=== PATIENT | male | born 1940 | race Caucasian/White ===

== ENCOUNTER → 2017-05-06 | Outpatient (CLI) | payer OTHER ==
[~2017-05-06] VITALS: Ht 177.8 cm; Wt 93.5 kg
[~2017-05-06] MED LIST: ASPIR 8181 MG PO; ATORVASTATIN CA40 MG PO; CELEBREX 200 M200 M1 PO; FISH OIL 1,001000 M2 PO; LOSARTAN POTAS100 MG PO; NEURONTIN 300300 M1 PO; NEXIUM40 MG PO; NORVASC5 MG PO; POTASSIUM99 MG PO; SYNTHROID75 MCG PO; TRAZODONE HCL50 MG PO; TYLENOL EXTRA500 MG PO; TYLENOL PM EX-1 EACH PO; UNICOMPLEX M TA1 TA1 PO
--- NOTE | ~2017-05-06 | HPC ---
[facility] [address] [place] [address] PAIN MANAGEMENT CONSULTATION Name: JAVIER CALLEJAS Room #: REG [facility].#: [id number] Admission: 05/06/17 Attend Phys: Jose Edward DO Discharge: Date of : 40 Report #: [id number] THIS REPORT FOR: //name// CC: Jose Lyons MD DATE OF SERVICE: 05/06/2017 REFERRING PHYSICIAN: Kimberly Lyons MD CHIEF COMPLAINT: Low back pain, bilateral lower extremity pain. HISTORY OF PRESENT ILLNESS: As you know, the patient is a 76-year-old male with longstanding history of low back pain, bilateral lower extremity pain. The patient indicates pain began several years back, no inciting injury or trauma. He has not had any formalized physical therapy nor has he undergone any type of imaging studies. He apparently had 3 prior history of low back pain, which was diagnosed as facet arthropathy and he underwent surgical X-STOP implantation times [address] Jay[address] This apparently alleviated the patient's axial back pain for a period of time. He did have prior epidural injections approximately [address] Sandro Edward at his outpatient facility. He is unable to remember if he received improvement in symptoms. The patient states pain has caused him to return to see his primary care who referred him over to our clinic for evaluation. He indicates today pain is 6/10, daily average of 6/10, worst pain has been is 10/10. The patient states that physical activity exacerbates symptoms, rest and medication tends to improve pain. He describes pain as continuous, intermittent numbness and tingling. The patient denies specific injury or trauma. He has not undergone any imaging including x-ray imaging. He has been referred to our service for evaluation. PAST MEDICAL HISTORY: 1. Hypertension. 2. Thyroid disease. 3. Osteoarthritis. 4. Degenerative joint disease. 5. Hypokalemia. 6. Gastroesophageal reflux disease. 7. Dyslipidemia. PAST SURGICAL HISTORY: 1. X-STOP implantation times 2. 2. Right total hip arthroplasty. SOCIAL HISTORY: The patient denies tobacco, IV or illicit drug use, admits to approximately 3 alcoholic beverages per day. 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 He is not receiving workmen's compensation nor is he trying to obtain disability benefits. He is unaccompanied at today's visit. REVIEW OF SYSTEMS: Positive for fatigue and weakness, wearing corrective eyewear, hearing loss with tinnitus, chronic sinus problems with rhinitis, nocturia, low back pain, thyroid disease, heat and cold intolerance, dyslipidemia, gastroesophageal reflux disease. All other review of systems negative per 12-point review of systems other than those listed in history of present illness. PAIN IMPACT SCORE: indicating [id number] interference of daily activities secondary to pain. ALLERGIES: IBUPROFEN. CURRENT MEDICATIONS: [facility]-3 fish oil 1 tab per day, multivitamin 1 tab per day, potassium 99 mg per day, Tylenol Extra Strength 500 mg 3 times a day, trazodone 50 mg p.o. at bedtime, gabapentin 300 mg b.i.d., aspirin 81 mg per day, omeprazole 40 mg per day, celecoxib 200 mg twice a day, atorvastatin 40 mg per day, losartan 100 mg per day, amlodipine 5 mg per day, levothyroxine 75 mcg per day. IMAGING: No imaging available. PQRS: The patient has known osteoarthritis. No rheumatoid arthritis. He has pain intensity 6/10. He is not a fall risk, has not had a fall in the past 3 months. He is not using any type of ambulatory device. Blood thinners, none. He is treated for hypertension. He is not on opioids. He is not at risk of opioid dependency. Functional assessment tool . PHYSICAL EXAMINATION: VITAL SIGNS: Blood pressure 165/88, pulse is 60, respiratory rate 18 and unlabored, the patient is 98% on room air, height 5 feet 10 inches tall, weight 206.2 pounds, and BMI calculated 29.6. GENERAL: Well-developed, well-nourished, well-hydrated 76-year-old male, appearing stated age, placing current pain score 6/10. HEENT: Normocephalic, atraumatic. Pupils are equal, round, and reactive to light. Sclerae nonicteric without injection. NEUROLOGIC: Speech is fluent. The patient deemed a good historian. LUNGS: Clear, no wheeze, rhonchi or rales. CARDIOVASCULAR: Regular. No appreciable gallop, no rub. ABDOMEN: Soft, nontender, nondistended, normoactive bowel sounds. EXTREMITIES: Show no clubbing, no cyanosis, and no edema. MUSCULOSKELETAL: Lower extremity strength appears equal and symmetrical 5/5. He is intact to light touch from L1 through S2 dermatomes. Seated straight leg [facility] [address] [place] [address] PAIN MANAGEMENT CONSULTATION Name: JAVIER CALLEJAS Room #: REG [facility]#: [id number] Admission: 05/06/17 Attend Phys: Jose Edward DO Discharge: Date of : 40 Report #: [id number] raising negative. Supine straight leg raising mildly positive. Lauren's test negative. Modified Gaenslen's positive for axial back pain. Ankle clonus negative. Babinski is negative. Lumbar provocation including extension, rotation, lateral flexion is met with reduction in mobility secondary to X-STOP and mild increase in pain. ASSESSMENT: 1. Chronic lumbar pain. 2. Bilateral lower extremity pain. 3. Lumbosacral spondylosis with radicular component. 4. Chronic intractable pain. PLAN: 1. The patient has been referred to our service by his primary care physician for evaluation for chronic back pain issues. The patient indicates pain has been present for years. The patient has had treatment in the lumbar region with X-STOP implantation to address axial back pain with Dr. Jay. He has also undergone epidural injections approximately 4 years ago to address axial back pain secondary to facet arthropathy. This has been worked well for the patient from chronic axial back pain standpoint, but did not improve the patient's lower extremity pain with paresthesias. He was referred to our clinic to discuss options for treatment for suspected lumbar radiculopathy. The patient and I did discuss that further imaging would be most beneficial so that we can determine the definitive course of treatment. We did discuss in generalities the treatment options for axial back pain and lower extremity pain with paresthesias. These would include physical therapy, stretching exercises, core strengthening for which the patient has not undergone formalized training and treatment. We discussed medication management with escalating doses of gabapentin and the use of a nonsteroidal anti-inflammatory on a consistent basis. We discussed lumbar epidural injections for which the patient was referred to our clinic and spinal cord stimulator therapy and surgical options. After this long discussion of treatment options, the patient was agreeable to undergo imaging study. 2. The patient will undergo MRI of lumbar spine without contrast. He will return once this has been completed. We will then review the findings and discuss more definitive treatment at our next visit. The patient will undergo this imaging study as quickly as possible, be seen back in our clinic to discuss the findings and treatment options that might be available. 3. No medication changes were made at today's visit. The patient to continue current medical therapy as previously prescribed. 4. We will see the patient back in followup visit once he has completed his MRI. We will discuss the findings and provide this information back to his PCP as well as suggestions for treatment. 5. We wish to thank Dr. Lyons for the opportunity to see this patient in consultation. We will keep you apprised of [place] [address] PAIN MANAGEMENT CONSULTATION Name: JAVIER CALLEJAS Room #: REG [facility]#: [id number] Admission: 05/06/17 Attend Phys: Jose Edward DO Discharge: Date of : 40 Report #: [id number] address his suspected lumbar radiculopathy and his axial back pain due to facet arthropathy. Again, we wish to thank you for the opportunity to see the patient in consultation. <ELECTRONICALLY SIGNED> By: Jose Edward DO 05/13/17 [id number] [id number] Jose Edward DO /nt
[2017-05-06 09:27] VITALS: BP 165/88
== END ==
LOC: RAD 06:41 → PAIN 06:41
DX: M47.897 Other spondylosis, lumbosacral region (principal); M79.661 Pain in right lower leg; I10 Essential (primary) hypertension; K21.9 Gastro-esophageal reflux disease without esophagitis; E78.5 Hyperlipidemia, unspecified

== ENCOUNTER → 2017-05-13 | Outpatient (CLI) | payer OTHER ==
[~2017-05-13] VITALS: Ht 177.8 cm; Wt 97.7 kg
--- NOTE | ~2017-05-13 | HPC ---
[facility] [place] [address] PAIN MANAGEMENT CONSULTATION Name: BRITTAJAVIER April Room #: REG [facility].#: [id number] Admission: 05/13/17 Attend Phys: Jose Edward DO Discharge: Date of : 40 Report #: [id number] THIS REPORT FOR: //name// CC: Jose Lyons MD DATE OF SERVICE: 05/13/2017 REFERRING PHYSICIAN: Kimberly Lyons M.D. CHIEF COMPLAINT: Low back pain, bilateral lower extremity pain and paresthesias. HISTORY OF PRESENT ILLNESS: As you know, the patient is a 76-year-old male with longstanding history of low back pain, bilateral lower extremity pain and paresthesias. The patient states pain began several years back. No inciting injury or trauma. He was referred to our clinic on 05/06/2017 for evaluation. At that appointment, the patient was diagnosed with chronic lumbar pain, bilateral lower extremity pain and lumbosacral spondylosis with radicular symptoms leading to chronic intractable pain involving low back and lower extremities. We sent the patient for imaging as we did wish to determine the potential source of his symptomology. He returns today. Reviewed the MRI, which does show significant multilevel extensive neural foraminal stenosis and severe central canal stenosis. He returns to discuss the findings on this MRI and discuss treatment options. ALLERGIES: IBUPROFEN. CURRENT MEDICATIONS: [place] 3 fish oil, multivitamin, potassium, acetaminophen, trazodone, gabapentin, aspirin, omeprazole, celecoxib, atorvastatin, losartan, amlodipine and levothyroxine. SOCIAL HISTORY: The patient denies tobacco, IV or illicit drug use. Admits to approximately 3 alcoholic beverages per day. 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 He is accompanied by his who is present in room today. IMAGING DATA: MRI of the lumbar spine obtained 05/06/2017 shows extensive multilevel lumbar spondylosis with interspinous process devices at L3-L4 and L4-L5, there is severe central canal stenosis at L2-L3, [id number]/severe left foraminal stenosis at L5-S1 and multilevel subarticular and neural foraminal stenosis throughout the lumbar region. PQRS: The patient has known osteoarthritis. No rheumatoid arthritis. His pain intensity today 5/10. He is not a fall risk, has not had a fall in the last [address] [address] PAIN MANAGEMENT CONSULTATION Name: BRITTAJAVIER April Room #: REG [facility]#: [id number] Admission: 05/13/17 Attend Phys: Jose Edward DO Discharge: Date of : 40 Report #: [id number] months. He is not on blood thinners. He is treated for hypertension. He is not on current opioids but does have a low opioid assessment. His functional assessment tool indicates that a pain intensity of 22/70. PHYSICAL EXAMINATION: VITAL SIGNS: Blood pressure 153/90, pulse is 65 and respiratory rate 16 and unlabored. The patient is 96% on room air. Height 5 feet 10 inches tall, weight 215 pounds and BMI calculated 30.9. GENERAL: Well-developed, well-nourished, well-hydrated 76-year-old male appearing stated age. He is placing current pain score at around 4/10. HEENT: Normocephalic and atraumatic. Pupils equal, round and reactive to light. Extraocular muscles are intact. Sclerae nonicteric without injection. NEUROLOGICAL: Cranial nerves 2 through 12 grossly intact. EXTREMITIES: Show no clubbing, no cyanosis and no edema. MUSCULOSKELETAL: Seated straight leg raising negative. Supine straight leg raising positive. Fabere's test negative. Modified Gaenslen's positive for axial low back pain. Ankle clonus negative. Babinski is negative. Gait is mildly antalgic. Stance, slightly forward flexed lumbar spine. ASSESSMENT: 1. Lumbar radiculopathy. 2. 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 3. Displacement of the lumbar intervertebral disk with radiculopathy. 4. Lumbosacral spondylosis with radiculopathy. 5. Severe neural foraminal stenosis of the lumbar spine. 6. Facet arthropathy of the lumbar spine. 7. Lumbar degeneration. 8. Chronic intractable pain. PLAN: 1. The patient has returned today in followup visit where we have discussed at length the findings on his MRI. We spent over 22 minutes of time reviewing the MRI and discussing the findings and how they correlate the patient's current symptoms. There are extensive changes throughout the lumbar region noted on the imaging study. This is likely secondary to the X-Stops placed at the levels at L3-L4 and L4-L5 causing L2-L3 severe neural foraminal stenosis due to facet changes and also L5-S1 changes that are below the X-Stop devices. We have discussed the findings with the patient and then discussed treatment options, which would include the following: We discussed physical therapy, stretching exercise, core strengthening as a way to treat the symptoms. We discussed medication management with neuropathic pain medication and low dose opioid for pain control. We discussed lumbar epidural injections under fluoroscopic guidance and spinal cord stimulator therapy along with surgical options as possible treatment. After reviewing the risks and benefits of all the proposed treatment options, the patient chose to begin with a lumbar epidural injection under fluoroscopic guidance. The patient was advised risks and benefits of a [facility] [address] [place] [address] PAIN MANAGEMENT CONSULTATION Name: JAVIER CALLEJAS Room #: REG [facility].#: [id number] Admission: 05/13/17 Attend Phys: Jose Edward DO Discharge: Date of : 40 Report #: [id number] lumbar epidural injection. These risks include but are not necessarily limited to bleeding, bruising, infection, worsening pain, no relief of pain and also risk of temporary or permanent muscle weakness, temporary or permanent nerve damage, possible paralysis and . The patient states understood and wished to proceed. 2. No medication changes were made at today's visit. The patient will continue current medical therapy as previously prescribed. 3. We will see the patient back in followup visit in approximately 30 days. At that time, review the efficacy of today's epidural injection to determine next in the series of epidural injections would be recommended. PROCEDURE NOTE DESCRIPTION OF PROCEDURE: L2-L3 lumbar epidural steroid injection under fluoroscopic guidance. This is the first procedure of the first series that the patient is undergoing. After obtaining written consent, the patient was taken back to the fluoroscopy suite, placed in a prone position with pillow under the abdomen to decrease lumbar lordosis. The skin overlying the lumbosacral area was then prepped and draped in aseptic fashion. The L2-L3 vertebral interspace was then identified by AP fluoroscopy. The skin and subcutaneous tissue overlying the target site of injection was anesthetized with 3 mL 1% lidocaine. A 20-gauge 3-1/2 inch Tuohy needle was then advanced under fluoroscopic guidance towards the epidural space using a midline approach. The epidural space was identified using loss of resistance to air technique. After negative aspiration for heme or cerebrospinal fluid, a total of 1 mL of Omnipaque was injected. A lumbar epidurogram was confirmed using both AP and lateral fluoroscopy. After negative aspiration for heme or cerebrospinal fluid, 5 mL of a solution containing 2 mL 40 mg per mL, 80 mg total triamcinolone, 3 mL lidocaine 1% was injected in increments. Contrast spread was noted posterior epidural space. The needle was then retracted approximately half way and needle tract flushed with 1 mL of 1% lidocaine. Needle was then removed. There were no apparent sensory or motor deficits in the lower extremity following the procedure. A sterile bandage was placed over the injection site. The heart rate, pulse, oximetry and blood pressure were continuously monitored after the procedure. There were no apparent complications. The patient tolerated the procedure well and was carefully escorted [place] [address] PAIN MANAGEMENT CONSULTATION Name: JAVIER CALLEJAS Room #: REG [facility]#: [id number] Admission: 05/13/17 Attend Phys: Jose Edward DO Discharge: Date of : 40 Report #: [id number] stable condition. There were no apparent complications. After meeting discharge criteria, the patient was then discharged home. <ELECTRONICALLY SIGNED> By: Jose Edward DO 05/19/17 1336 [id number] Jose Edward DO /nt
[2017-05-13 09:57] VITALS: BP 153/90
== END | disposition home or self-care (01) ==
LOC: PAIN 07:00
DX: M47.26 Other spondylosis with radiculopathy, lumbar region (principal); M47.27 Other spondylosis with radiculopathy, lumbosacral region; G89.29 Other chronic pain; M48.061 Spinal stenosis, lumbar region without neurogenic claudication; Z68.30 Body mass index [BMI] 30.0-30.9, adult; Z88.8 Allergy status to other drugs, medicaments and biological substances

== ENCOUNTER → 2018-05-12 | Outpatient (CLI) | payer OTHER ==
[~2018-05-12] VITALS: Ht 177.8 cm; Wt 91.9 kg
[2018-05-12 10:11] VITALS: BP 150/86
--- NOTE | 2018-05-12 10:23 | NUR ---
Pain Clinic Assessment: 1. History of Osteoarthritis: Left Lower Extremity Right Lower Extremity History of Rheumatoid Arthritis: Not Applicable 2. Height: 5 ft. 10 in. 177.8 cm. Weight: 202.6 lb. oz. 91.899 kg. Patient's BMI: 29.1 3. Vital Signs: BP: 150/86 Pulse: 54 Resp: 16 Temp: 02 Sat: 98 ECG Mon: 4. Pain Intensity: 5 5. Fall Risk: Dizziness: N Needs help standing or walking: N Fallen in the last 3 months: N Fall risk comments: 6. Patient on Blood Thinner: None 7. History of Hypertension: Y 8. Opioid Therapy greater than 6 weeks: N Opiate Contract Signed: 9. Risk Assessment Tool Provided: LOW 10. Functional Assessment Tool: 11. Recreational Drug Use: Never Drug Type: Tobacco Use: Never Smoker Tobacco Type: Amount or Packs/day: How Many Years: Alcohol Use: Yes Frequency: Weekly Quant: 8-10
--- NOTE | 2018-05-18 07:33 | HPC ---
[facility] [place] [address] PAIN MANAGEMENT CONSULTATION Name: JAVIER CALLEJAS [facility] [id number] Admission: 05/12/18 ������������������ Attend Phys: Jose Edward DO Discharge: ������������������ Date of : 40 Report #: [id number] THIS REPORT FOR: //name// CC: Jose Lyons DATE OF SERVICE: 05/12/2018 REFERRING PHYSICIAN: Kimberly Lyons M.D. CHIEF COMPLAINT: Low back pain and bilateral lower extremity pain with paresthesias. HISTORY OF PRESENT ILLNESS: As you know, the patient is a 77-year-old male who returns today in followup visit to review his MRI and to discuss treatment options for lumbar radicular symptoms. The patient's MRI showed extensive multilevel spondylosis with interspinous processes devices at L3-L4 and L4-L5 with severe central canal stenosis at the L2-L3 level, severe foraminal stenosis at the L5-S1 level. He returns today to review these findings and discuss options for treatment. He is placing pain score 5/10. ALLERGIES: IBUPROFEN. CURRENT MEDICATIONS: [place]-3 fish oil, multivitamin, potassium, acetaminophen, trazodone, gabapentin, aspirin, omeprazole, celecoxib, atorvastatin, losartan, amlodipine and levothyroxine. SOCIAL HISTORY: The patient denies tobacco or IV or illicit drug use. Admits to 3 alcohol beverages per day. 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 IMAGING DATA: MRI lumbar spine obtained 05/06/2017 shows extensive multilevel lumbar spondylosis with interspinous processes devices at L3-L4, L4-L5; severe central canal stenosis at L2-L3 and [id number]-ei-oqxojo left foraminal stenosis at L5-S1. There is effacement of the central canal at L2-L3, L3-L4, L4-L5 and L5-S1. PQRS: The patient has known osteoarthritis of the lumbar spine, bilateral hips, bilateral knees. There was no rheumatoid arthritis. He is placing pain intensity today 5/10. He is not a fall risk, has not had a fall in the last 3 months. He is not on blood thinners. He is treated for hypertension. He is not on chronic opioids. He has a low opioid addiction potential. He is placing pain impact score 22/70, hrgi-qj-[id number] interference of daily activities secondary to pain. PHYSICAL EXAMINATION: VITAL SIGNS: Blood pressure 150/86, pulse is 54 and respiratory rate [address] [address] PAIN MANAGEMENT CONSULTATION Name: JAVIER CALLEJAS [facility] [id number] Admission: 05/12/18 ������������������ Attend Phys: Jose Edward DO Discharge: ������������������ Date of : 40 Report #: [id number] unlabored. The patient is 98% on room air. Height 5 feet 10 inches tall, weight 202.6 pounds and BMI calculated 29.1. GENERAL: Well-developed, well-nourished and well-hydrated 77-year-old male appearing stated age, placing current pain score 5/10. HEENT: Normocephalic and atraumatic. Pupils equal, round and reactive to light. EXTREMITIES: Show no clubbing, no cyanosis and no edema. MUSCULOSKELETAL: Lower extremity strength is symmetrical 5/5. Seated straight leg raising negative. Supine straight leg raising positive. Lauren's test negative. Modified Gaenslen's positive for axial low back pain. Gait antalgic. ASSESSMENT: 1. Symptomatic lumbar radiculopathy. 2. 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 3. Severe neural foraminal stenosis of the lumbar spine. 4. Lumbosacral spondylosis with radiculopathy. 5. Displacement of lumbar intervertebral disk with radiculopathy. 6. Facet arthropathy of the lumbar spine. 7. Lumbar degeneration. 8. Chronic intractable pain. PLAN: 1. The patient returns today in followup visit where we reviewed his MRI and the findings therein. I am disappointed to advise the patient that he has severe central canal stenosis at the L2-L3 level, likely due to progressive nature of fusion devices leading to more rapid development of arthritic changes above the level of fusion. As you are aware, the patient has interspinous fusion devices at L3-L4 and L4-L5, which does put him at greater risk of problems occurring at the L2-L3 and the L5-S1 level. The patient has severe central canal stenosis at L2-L3 and will likely need to have decompression sometime in the future. He also has severe neural foraminal stenosis at the L5-S1 level on the left, which could potentially be contributing to the patient's overall pain. We discussed with the patient the MRI imaging today over a 25-minute period of time. After this conversation was completed, we discussed treatment options. Options for treatment include physical therapy, stretching exercises and core strengthening. We discussed medication management, adding neuropathic pain medication that consisted nonsteroidal anti-inflammatory. We discussed lumbar epidural injections under fluoroscopic guidance, spinal cord stimulator therapy to provide temporary improvement in symptoms and ultimately surgical decompression. After reviewing risks and benefits of all proposed treatment options, the patient chose to move forward with a lumbar epidural injection under fluoroscopic guidance. The patient was advised of risks and benefits to this procedure and these risks [address] [address] PAIN MANAGEMENT CONSULTATION Name: JAVIER CALLEJAS Room #: [facility]#: [id number] Admission: 05/12/18 ������������������ Attend Phys: Jose Edward DO Discharge: ������������������ Date of : 40 Report #: [id number] include but not necessarily limited to bleeding, bruising, infection, worsening pain, no relief of pain, also risk of temporary or permanent muscle weakness, temporary or permanent nerve damage, possible paralysis and . The patient states understood and wished to proceed. 2. No medication changes made at today's visit. The patient will continue current medical therapy as previously prescribed. 3. We will see the patient back in followup visit in 3 weeks for possible repeat epidural injection under fluoroscopic guidance. PROCEDURE NOTE DESCRIPTION OF PROCEDURE: L2-L3 interlaminar epidural steroid injection under fluoroscopic guidance. This is the first procedure of the second series that the patient is undergoing. After obtaining written consent, the patient was taken back to the fluoroscopy suite, placed in a prone position with pillow under the abdomen to decrease lumbar lordosis. The skin overlying the lumbosacral area was then prepped and draped in aseptic fashion. The L2-L3 vertebral interspace was then identified by AP fluoroscopy. The skin and subcutaneous tissue overlying the target site of injection was anesthetized with 3 mL 1% lidocaine. A 20-gauge 3-1/2 inch Tuohy needle was then advanced under fluoroscopic guidance towards the epidural space using a midline approach. The epidural space was identified using loss of resistance to air technique. After negative aspiration for heme or cerebrospinal fluid, a total of 1 mL of Omnipaque was injected. A lumbar epidurogram was confirmed using both AP and lateral fluoroscopy. After negative aspiration for heme or cerebrospinal fluid, 5 mL of a solution containing 2 mL 40 mg per mL, 80 mg total triamcinolone, 3 mL lidocaine 1% was injected in increments. Contrast spread was noted posterior epidural space. The needle was then retracted approximately half way and needle tract flushed with 1 mL of 1% lidocaine. Needle was then removed. There were no apparent sensory or motor deficits in the lower extremity following the procedure. A sterile bandage was placed over the injection site. The heart rate, pulse, oximetry and blood pressure were continuously monitored after the procedure. There were no apparent complications. The patient tolerated the procedure well and was carefully escorted to the recovery room in stable condition. There were no apparent complications. After meeting discharge criteria, the patient was then discharged home. ��������������������������������������������� <ELECTRONICALLY SIGNED> ���������������������������������������� By: Jose Edward DO ��������������������������������������������� 05/18/18 [id number] Jose Edward DO /nt
== END | disposition home or self-care (01) ==
LOC: PAIN 06:56
DX: M51.16 Intervertebral disc disorders with radiculopathy, lumbar region (principal); M48.061 Spinal stenosis, lumbar region without neurogenic claudication; M47.27 Other spondylosis with radiculopathy, lumbosacral region; M47.26 Other spondylosis with radiculopathy, lumbar region; G89.29 Other chronic pain; I10 Essential (primary) hypertension; M19.90 Unspecified osteoarthritis, unspecified site; Z88.8 Allergy status to other drugs, medicaments and biological substances; Z79.899 Other long term (current) drug therapy; Z79.82 Long term (current) use of aspirin

== ENCOUNTER → 2018-09-01 | Outpatient (CLI) | payer OTHER ==
[~2018-09-01] VITALS: Ht 177.8 cm; Wt 94.6 kg
[~2018-09-01] MED LIST changes: +FLONASE 0.05%50 MCG NASAL; +HYDROCHLOROTH12.5 M2 PO
--- NOTE | ~2018-09-01 | HPC ---
[facility] [address] [place] [address] PAIN MANAGEMENT CONSULTATION Name: RBITTAJAVIER April Room #: REG [facility].#: [id number] Admission: 09/01/18 ������������������ Attend Phys: Jose Edward DO Discharge: ������������������ Date of : 40 Report #: [id number] THIS REPORT FOR: //name// CC: Jose Lyons MD DATE OF SERVICE: 09/01/2018 REFERRING PHYSICIAN: Kimberly Lyons M.D. CHIEF COMPLAINT: Low back pain and bilateral lower extremity pain with paresthesias. HISTORY OF PRESENT ILLNESS: As you know, the patient is a very pleasant 78-year-old male who returns today in followup visit having undergone lumbar epidural injections under fluoroscopic guidance with reported 90% improvement in overall pain lasting for nearly 10 weeks. He returns today in followup visit with slow and progressive return of symptoms. He is now placing pain score 5/10. The patient denies any specific injury or trauma that may have led to symptom reoccurrence. He returns today to discuss next in a series of epidural injections and other treatment options. ALLERGIES: IBUPROFEN. CURRENT MEDICATIONS: [place]-3 fish oil, multivitamin, potassium, acetaminophen, trazodone, gabapentin, aspirin, omeprazole, celecoxib, atorvastatin, losartan, amlodipine and levothyroxine. SOCIAL HISTORY: The patient denies tobacco or IV or illicit drug use. Admits to 3 alcoholic beverages per day. 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 IMAGING DATA: No new imaging available. PQRS: The patient has no known arthritic changes of the lumbar spine, bilateral hips and bilateral knees. No rheumatoid arthritis. He is placing pain intensity today at 5/10. He is not a fall risk, has not had a fall in the 3 months. He is not on blood thinners but is treated for hypertension. He is not on opioids and has a low opioid addiction potential based on our addiction testing. He is placing pain impact score 22/70 indicating lrpe-cx-[id number] interference of daily activities secondary to pain. PHYSICAL EXAMINATION: VITAL SIGNS: Blood pressure 136/75, pulse 58 and respiratory rate 14 and unlabored. The patient is 96% on room air. Height 5 feet 10 inches tall, [address] [address] PAIN MANAGEMENT CONSULTATION Name: JAVIER CALLEJAS Room #: REG [facility].#: [id number] Admission: 09/01/18 ������������������ Attend Phys: Jose Edward DO Discharge: ������������������ Date of : 40 Report #: [id number] weight 208.6 pounds and BMI calculated 29.9. GENERAL: Well-developed, well-nourished, well-hydrated 78-year-old male appearing stated age, pain is rated 5/10. HEENT: Normocephalic and atraumatic. Pupils equal, round and reactive to light. EXTREMITIES: Show no clubbing, no cyanosis and no edema. MUSCULOSKELETAL: Lower extremity strength symmetrical 5/5. Muscle bulk and tone equal and symmetrical when comparing left lower extremity to right. Seated straight leg raising negative. Supine straight leg raising positive, mainly on the right. Lauren's test negative. Modified Gaenslen's positive for axial low back pain. Ankle clonus negative. Babinski is negative. Gait is antalgic. Well-healed surgical scars over the lumbar spine, status post 2 lumbar surgeries. ASSESSMENT: 1. Symptomatic lumbar radiculopathy. 2. 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 3. Severe neural foraminal stenosis of the lumbar spine. 4. Lumbosacral spondylosis with radiculopathy. 5. Displacement of the lumbar intervertebral disk with radiculopathy. 6. Facet arthropathy of the lumbar spine. 7. Lumbar degeneration. 8. Chronic intractable pain. PLAN: 1. The patient returns today in followup visit having noted 90% improvement in overall pain with previous lumbar epidural injection under fluoroscopic guidance. He is very pleased with response to this injection, returning today to undergo next in the series. He has been advised risks and benefits of the procedure, states understood and wished to proceed. 2. The patient and I did discuss other treatment options available for his ongoing symptoms. These would include physical therapy, stretching exercise, core strengthening as a treatment course. We discussed medication management adding neuropathic pain medications and if possible consistent nonsteroidal anti-inflammatory. We discussed continuing epidural injections as we did see 10 weeks of improvement of 90% or greater. We also discussed spinal cord stimulator therapy and surgical options, which would include revision to the X-Stops implanted and a full instrumented fusion with decompression, as you are aware, a very complicated and extensive surgery. After reviewing the risks and benefits of all proposed treatment options, the patient chose to continue with the epidural injections with hopes of gaining further improvement. The patient was advised risks and benefits of a lumbar epidural injection. These risks include but are not necessarily limited to bleeding, bruising, infection, worsening pain, no relief of pain, also risk of temporary or permanent muscle weakness, temporary or permanent nerve damage, possible [address] [address] PAIN MANAGEMENT CONSULTATION Name: JAVIER CALLEJAS [id number] Admission: 09/01/18 ������������������ Attend Phys: Jose Edward DO Discharge: ������������������ Date of : 40 Report #: [id number] paralysis and . The patient states understood and wished to proceed. 3. We will see the patient back in followup visit on an as needed basis for possible next in a series of lumbar epidural injections. We wish the patient well with the second in the series. We did describe one remaining epidural injection in the 6 months, we wish to delay on this injection until which time it is necessary. He will make an appointment back with us as needed. PROCEDURE NOTE DESCRIPTION OF PROCEDURE: L2-L3 interlaminar epidural steroid injection under fluoroscopic guidance. This is the second procedure of the first series that the patient is undergoing. After obtaining written consent, the patient was taken back to the fluoroscopy suite, placed in a prone position with pillow under the abdomen to decrease lumbar lordosis. The skin overlying the lumbosacral area was then prepped and draped in aseptic fashion. The L2-L3 vertebral interspace was then identified by AP fluoroscopy. The skin and subcutaneous tissue overlying the target site of injection was anesthetized with 3 mL 1% lidocaine. A 20-gauge 3-1/2 inch Tuohy needle was then advanced under fluoroscopic guidance towards the epidural space using a midline approach. The epidural space was identified using loss of resistance to air technique. After negative aspiration for heme or cerebrospinal fluid, a total of 1 mL of Omnipaque was injected. A lumbar epidurogram was confirmed using both AP and lateral fluoroscopy. After negative aspiration for heme or cerebrospinal fluid, 5 mL of a solution containing 2 mL 40 mg per mL, 80 mg total triamcinolone, 3 mL lidocaine 1% was injected in increments. Contrast spread was noted posterior epidural space. The needle was then retracted approximately half way and needle tract flushed with 1 mL of 1% lidocaine. Needle was then removed. There were no apparent sensory or motor deficits in the lower extremity following the procedure. A sterile bandage was placed over the injection site. The heart rate, pulse, oximetry and blood pressure were continuously monitored after the procedure. There were no apparent complications. The patient tolerated the procedure well and was carefully escorted to the recovery room in stable condition. There were no apparent complications. After meeting discharge criteria, the patient was then discharged home. ��������������������������������������������� ���������������������������������������� By: ��������������������������������������������� [id number] Jose Edward DO /nt
[2018-09-01 09:00] VITALS: BP 136/75
--- NOTE | 2018-09-01 09:12 | NUR ---
Pain Clinic Assessment: 1. History of Osteoarthritis: Left Lower Extremity Right Lower Extremity History of Rheumatoid Arthritis: Not Applicable 2. Height: 5 ft. 10 in. 177.8 cm. Weight: 208.6 lb. oz. 94.620 kg. Patient's BMI: 29.9 3. Vital Signs: BP: 136/75 Pulse: 58 Resp: 14 Temp: 02 Sat: 96 ECG Mon: 4. Pain Intensity: 5 5. Fall Risk: Dizziness: N Needs help standing or walking: N Fallen in the last 3 months: N Fall risk comments: 6. Patient on Blood Thinner: None 7. History of Hypertension: Y 8. Opioid Therapy greater than 6 weeks: N Opiate Contract Signed: 9. Risk Assessment Tool Provided: LOW 10. Functional Assessment Tool: 11. Recreational Drug Use: Never Drug Type: Tobacco Use: Never Smoker Tobacco Type: Amount or Packs/day: How Many Years: Alcohol Use: Yes Frequency: Quant:
== END | disposition home or self-care (01) ==
LOC: PAIN 08:43
DX: M51.16 Intervertebral disc disorders with radiculopathy, lumbar region (principal); M48.061 Spinal stenosis, lumbar region without neurogenic claudication; M47.27 Other spondylosis with radiculopathy, lumbosacral region; M46.26 Osteomyelitis of vertebra, lumbar region; G89.29 Other chronic pain; Z88.8 Allergy status to other drugs, medicaments and biological substances; Z79.82 Long term (current) use of aspirin; Z79.899 Other long term (current) drug therapy; Z88.2 Allergy status to sulfonamides; Z98.890 Other specified postprocedural states

== ENCOUNTER → 2018-12-29 | Outpatient (CLI) | payer OTHER ==
[~2018-12-29] VITALS: Ht 177.8 cm; Wt 88.0 kg
[2018-12-29 08:59] VITALS: BP 149/91
--- NOTE | 2018-12-29 09:07 | NUR ---
Pain Clinic Assessment: 1. History of Osteoarthritis: Left Lower Extremity Right Lower Extremity History of Rheumatoid Arthritis: Not Applicable 2. Height: 5 ft. 10 in. 177.8 cm. Weight: 194.0 lb. oz. 87.998 kg. Patient's BMI: 27.8 3. Vital Signs: BP: 149/91 Pulse: 67 Resp: 16 Temp: 02 Sat: 98 ECG Mon: 4. Pain Intensity: 5 5. Fall Risk: Dizziness: N Needs help standing or walking: N Fallen in the last 3 months: N Fall risk comments: 6. Patient on Blood Thinner: None 7. History of Hypertension: Y 8. Opioid Therapy greater than 6 weeks: N Opiate Contract Signed: 9. Risk Assessment Tool Provided: LOW-0 10. Functional Assessment Tool: 47/ 11. Recreational Drug Use: Never Drug Type: Tobacco Use: Never Smoker Tobacco Type: Amount or Packs/day: How Many Years: Alcohol Use: Yes Frequency: Weekly Quant: 6 beers
--- NOTE | 2019-01-04 14:01 | HPC ---
[facility] [address] [place] [address] PAIN MANAGEMENT CONSULTATION Name: BRITTAJAVIER April Room #: REG THANG KeeneVicenteLouiseVicente#: [id number] Admission: 12/29/18 Attend Phys: Jose Edward DO Discharge: Date of : 40 Report #: [id number] THIS REPORT FOR: //name// CC: Jose Lyons MD DATE OF SERVICE: 12/29/2018 REFERRING PHYSICIAN: Kimberly Lyons MD CHIEF COMPLAINT: Low back pain, bilateral lower extremity pain with paresthesias. HISTORY OF PRESENT ILLNESS: As you know, the patient is a 78-year-old male who returns today in followup visit to undergo next in the series of lumbar epidural injections under fluoroscopic guidance. He reports good efficacy with previous injections, reporting 75% improvement in overall pain lasting for 2 months. Unfortunately, his symptoms have begun to return. He is now placing pain score 5/10. He states the pain as aching, stabbing, numbness and tingling when describing symptoms. Pain is worse in the morning and with walking long distances, improves with medications, sitting, repositioning activity and previous epidural injections. He returns today to undergo next in the series of epidural injections in hopes of improvement in pain. ALLERGIES: IBUPROFEN. CURRENT MEDICATIONS: See chart. SOCIAL HISTORY: The patient denies tobacco, IV or illicit drug use. Admits to 3 alcohol beverages per day. 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 IMAGING: No new imaging available. PQRS: The patient has known arthritic changes of the lumbar spine, bilateral hips and bilateral knees, no rheumatoid arthritis. He is placing pain intensity 5/10, is not a fall risk, has not had a fall in last 3 months. He is not on blood thinners, but he is taking medications for hypertension. He is not on opioids and has a low opioid addiction potential. Pain impact score 47/70 indicating severe interference of daily activities secondary to pain. PHYSICAL EXAMINATION: VITAL SIGNS: Blood pressure 149/91, pulse 67, respiratory rate 16 and unlabored. The patient is 98% on room air. Height 5 feet 10 inches tall, weight 194 pounds, BMI calculated 27.8. GENERAL: Well-developed, well-nourished, well-hydrated 78-year-old male [address] [address] PAIN MANAGEMENT CONSULTATION Name: BRITTAJAVIER April [facility] [id number] Admission: 12/29/18 Attend Phys: Jose Edward DO Discharge: Date of : 40 Report #: [id number] appearing stated age, pain is rated today 5/10. HEENT: Normocephalic, atraumatic. Pupils equal, round, reactive to light. EXTREMITIES: Show no clubbing, no cyanosis, no edema. MUSCULOSKELETAL: Lower extremity strength equal and symmetrical 5/5. Seated straight leg raising negative. Supine straight leg raising positive on the right, negative left. Lauren's test negative. Modified Gaenslen's positive for axial low back pain. ASSESSMENT: 1. Symptomatic lumbar radiculopathy. 2. Severe spinal stenosis of lumbar spine. 3. Severe neural foraminal stenosis of the lumbar spine. 4. Lumbosacral spondylosis with radiculopathy. 5. Displacement of lumbar intervertebral disk with radiculopathy. 6. Facet arthropathy of the lumbar spine. 7. Degeneration of lumbar spine. 8. Chronic intractable pain. PLAN: 1. The patient returns today in followup visit having noted 75% improvement in overall pain with the epidural injection provided at our last visit, this lasted for nearly 2 months. He returns today with pain level of 5/10. The patient has requested to undergo next in the series of lumbar epidural injections to build on success of previous intervention. The patient has been advised of the risks and the benefits of this procedure. These risks include but are not necessarily limited to bleeding, bruising, infection, worsening pain, no relief of pain, also risk of temporary or permanent muscle weakness, temporary or permanent nerve damage, possible paralysis, post-dural puncture headache and . The patient states understood and wished to proceed. 2. No medication changes made at today's visit. The patient will continue current medical therapy as prior prescribed. 3. The patient will return to our clinic on an as needed basis for possible next in the series of epidural injections. PROCEDURE NOTE DESCRIPTION OF PROCEDURE: L2-L3 interlaminar epidural steroid injection under fluoroscopic guidance. This is the third procedure of the first series that the patient is undergoing. After obtaining written consent, the patient was taken back to the fluoroscopy suite, placed in a prone position with pillow under the abdomen to decrease lumbar lordosis. The skin overlying the lumbosacral area was then prepped and draped in aseptic fashion. The L2-L3 vertebral interspace was then identified by AP fluoroscopy. The skin and subcutaneous tissue overlying the target site [address] [address] PAIN MANAGEMENT CONSULTATION Name: JAVIER CALLEJAS Room #: [facility] [id number] Admission: 12/29/18 Attend Phys: Jose Edward DO Discharge: Date of : 40 Report #: [id number] of injection was anesthetized with 3 mL 1% lidocaine. A 20-gauge 3-1/2 inch Tuohy needle was then advanced under fluoroscopic guidance towards the epidural space using a paramedian approach. The epidural space was identified using loss of resistance to air technique. After negative aspiration for heme or cerebrospinal fluid, a total of 1 mL of Omnipaque was injected. A lumbar epidurogram was confirmed using both AP and lateral fluoroscopy. After negative aspiration for heme or cerebrospinal fluid, 5 mL of a solution containing 2 mL 40 mg per mL, 80 mg total triamcinolone along with 3 mL of lidocaine 1% was injected in increments. Contrast spread was noted posterior epidural space. The needle was then retracted approximately half way and needle tract flushed with 1 mL of 1% lidocaine. Needle was then removed. There were no apparent sensory or motor deficits in the lower extremity following the procedure. A sterile bandage was placed over the injection site. The heart rate, pulse, oximetry and blood pressure were continuously monitored after the procedure. There were no complications. The patient tolerated the procedure well and was carefully escorted to the recovery room in stable condition. There were no apparent complications. After meeting discharge criteria, the patient was then discharged home. <ELECTRONICALLY SIGNED> By: Jose Edward DO 01/04/19 [id number] Jose Edward DO /nt
== END | disposition home or self-care (01) ==
LOC: PAIN 06:53
DX: M54.5 Low back pain (principal); M51.16 Intervertebral disc disorders with radiculopathy, lumbar region; M48.061 Spinal stenosis, lumbar region without neurogenic claudication; M47.27 Other spondylosis with radiculopathy, lumbosacral region; M47.26 Other spondylosis with radiculopathy, lumbar region; G89.29 Other chronic pain; I10 Essential (primary) hypertension; M19.90 Unspecified osteoarthritis, unspecified site; Z98.890 Other specified postprocedural states; Z79.899 Other long term (current) drug therapy; Z88.8 Allergy status to other drugs, medicaments and biological substances; Z88.2 Allergy status to sulfonamides; Z79.82 Long term (current) use of aspirin

== ENCOUNTER → 2020-11-06 | Outpatient (CLI) | payer OTHER ==
[~2020-11-06] VITALS: Ht 177.8 cm; Wt 90.9 kg
[~2020-11-06] MED LIST changes: +TYLENOL PM EX-1 EACH
--- NOTE | ~2020-11-06 | HPC ---
[facility] [place] [address] PAIN MANAGEMENT CONSULTATION Name: JAVIER CALLEJAS Room #: REG THANG KeeneVicenteLouiseVicente#: [id number] Admission: 11/06/20 Attend Phys: Jose Edward DO Discharge: Date of : 40 Report #: [id number] THIS REPORT FOR: cc: Kimberly Lyons MD,Jose Gramajo MD, DO ~ cc: Kimberly Lyons MD DATE OF SERVICE: 11/06/2020 REFERRING PHYSICIAN: Dr. Kimberly Lyons. CHIEF COMPLAINT: Low back pain, left lower extremity pain and left hip pain. HISTORY OF PRESENT ILLNESS: As you know, the patient is an 80-year-old male who returns today in followup visit with concern of left hip pain. He also experiences low back pain and left lower extremity pain that is intermittent in nature. He states that when walking or doing any activity his left hip pain intensifies. He states his pain is very similar to the pain he had in the right hip prior to his total hip arthroplasty. He returns today in followup visit per the request of his primary care physician to undergo a left hip injection under fluoroscopic guidance to address symptoms. He is placing his current pain score 4/10. The patient does have a history of lumbar radiculopathy involving the left lower extremity, but symptoms per the patient are more exacerbated with standing and walking consistent with the left hip symptoms than with lumbar radiculopathy. ALLERGIES: IBUPROFEN. CURRENT MEDICATIONS: See chart. SOCIAL HISTORY: The patient denies tobacco, IV or illicit drug use. Admits to 3 alcoholic beverages per day. 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 IMAGING: No new imaging available. 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 No rheumatoid arthritis. The patient is placing pain today at a 4/10. He is not a fall risk, has not had a fall in the last 3 months. He is on blood thinners in the form of a baby aspirin and has taken that medication today. He is treated for hypertension, but not on any opioids, has a low opioid addiction potential based on assessment tool. Pain impact is 47/70, moderate interference of daily activities secondary to pain. PHYSICAL EXAMINATION: [facility] [address] [place] [address] PAIN MANAGEMENT CONSULTATION Name: BRITTAJAVIER April [facility] #: REG [facility] [id number] Admission: 11/06/20 Attend Phys: Jose Edward DO Discharge: Date of : 40 Report #: [id number] VITAL SIGNS: Blood pressure 131/80, pulse 56, respiratory rate 16 and unlabored. The patient 98% on room air. Height 5 feet 10 inches tall, weight 200.4 pounds, BMI calculated 28.8. GENERAL: Well-developed, well-nourished, well-hydrated 80-year-old male appearing stated age, pain is rated a 4/10. HEENT: Normocephalic, atraumatic. Pupils equal, round and responsive. He is deemed a good historian. He is wearing a mask in compliance with COVID-19 regulations. EXTREMITIES: Show no clubbing, no cyanosis. No appreciable edema. MUSCULOSKELETAL: Lower extremity strength equal and symmetrical 5/5, intact to light touch from L1 through S2 dermatomes. Seated straight leg raising negative. Supine straight leg raising is positive on the left. Lauren's test is positive for left osteoarthritic changes in the hip. There is mild crepitus with active and passive range of motion of the hip. Weightbearing such as standing from a seated position or ambulating exacerbates symptoms with pain in the hip and into the groin. ASSESSMENT: 1. Left hip pain. 2. Left hip osteoarthritis. 3. Symptomatic lumbar radiculopathy. 4. 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 5. Severe neural foraminal stenosis of lumbar spine. 6. Lumbosacral spondylosis with radiculopathy. 7. Displacement of lumbar intervertebral disk with radiculopathy. 8. Facet arthropathy of lumbar spine. 9. Degeneration of lumbar spine. 10. Chronic intractable pain. PLAN: 1. The patient returns today in followup visit with continued and progressively worsening left hip pain. He is able to localize pain directly over the hip, exacerbated with standing and walking, improves with lying down. He does have a known lumbar radiculopathy due to central canal stenosis, but this does not appear to be the source of his symptoms today. We have discussed with the patient the options for treatment for left hip pain due to osteoarthritis. The patient reports symptoms he is experiencing in the left hip are very similar to the symptoms he was experiencing in the right hip prior to his total hip arthroplasty. We discussed with the patient the options for treatment, which would include physical therapy, stretching exercises and strengthening techniques. We discussed suggestions in medication management to include nonsteroidal anti-inflammatory for baseline pain control. We discussed intra-articular hip injections and ultimately a total hip arthroplasty. After reviewing risks and benefits of all proposed treatment options, the patient chose to begin with a left intraarticular hip injection. The patient has been advised risks and benefits of a left intraarticular hip injection. These risks [address] [address] PAIN MANAGEMENT CONSULTATION Name: JAVIER CALLEJAS Room #: REG [facility]#: [id number] Admission: 11/06/20 Attend Phys: Jose Edward DO Discharge: Date of : 40 Report #: [id number] include but are not necessarily limited to bleeding, bruising, infection, worsening pain, no relief of pain, also risk of temporary or permanent muscle weakness, temporary or permanent nerve damage, possible joint destruction and . The patient states he understood and wished to proceed. 2. No medication changes made at today's visit. The patient will continue current medical therapy as prior prescribed. 3. We will plan to see the patient back in followup visit in 30 days. At that time, review the efficacy of the intra-articular hip injection and determine if any other treatment options are going to be necessary. PROCEDURE NOTE: DESCRIPTION OF PROCEDURE: Left intra-articular hip injection under fluoroscopic guidance. After obtaining written consent, the patient was taken back to fluoroscopy suite, placed in a supine position. The image intensifier was then brought into position over the left hip and AP imaging was obtained. The skin overlying the left hip was prepped and draped in aseptic fashion using chlorhexidine. A sterile marker was used to anne the area of the injection. A 27-gauge 1-1/4-inch needle was then used to anesthetize skin and subcutaneous tissue with 2 mL of 1% preservative-free lidocaine. A 22-gauge 3-1/2 inch spinal needle was advanced under fluoroscopic guidance towards the proximal head of the femur on the left. Needle was advanced until reaching the proximal head of the femur. After contact with the osseous structure the needle was retracted approximately 1 mm. After negative aspiration for heme, 1 mL of Omnipaque injected demonstrating an excellent left hip arthrogram. After negative aspiration for heme, 3 mL of a solution containing 1 mL 40 mg per mL, 40 mg total triamcinolone and 2 mL of bupivacaine 0.5% was injected slowly. Needle retracted senior living flushed with 1 mL of 1% lidocaine and removed. Sterile bandage placed over injection site. No new motor deficits present in the lower extremity following procedure. The patient tolerated the procedure well, carefully escorted to recovery room in stable condition. No apparent complications. VAS before procedure rated at 4/10, VAS 10 minutes after procedure 0/10. After meeting our discharge criteria, the patient discharged home. By: [id number] Jose Edward DO /nt
[2020-11-06 10:38] VITALS: BP 131/80
== END | disposition home or self-care (01) ==
LOC: PAIN 06:54
PROVIDERS: ATTEND Anesthesiology Pain Medicine
DX: M25.552 Pain in left hip (principal); M16.12 Unilateral primary osteoarthritis, left hip; M51.16 Intervertebral disc disorders with radiculopathy, lumbar region; M47.26 Other spondylosis with radiculopathy, lumbar region; M47.27 Other spondylosis with radiculopathy, lumbosacral region; G89.29 Other chronic pain; I10 Essential (primary) hypertension; M19.90 Unspecified osteoarthritis, unspecified site; Z98.890 Other specified postprocedural states; Z79.899 Other long term (current) drug therapy; Z88.8 Allergy status to other drugs, medicaments and biological substances; Z88.2 Allergy status to sulfonamides

== ENCOUNTER → 2020-11-20 | Outpatient (CLI) | payer OTHER ==
[~2020-11-20] VITALS: Ht 167.6 cm; Wt 89.8 kg
[~2020-11-20] MED LIST changes: +RELAFEN500 M1 PO
--- NOTE | ~2020-11-20 | HPC ---
[facility] [place] [address] PAIN MANAGEMENT CONSULTATION Name: JAVIER CALLEJAS Room #: REG THANG KeeneLucian#: [id number] Admission: 11/20/20 Attend Phys: Jose Edward DO Discharge: Date of : 40 Report #: [id number] THIS REPORT FOR: cc: Kimberly Lyons MD,Jose Gramajo MD, DO ~ cc: Kimberly Lyons MD DATE OF SERVICE: 11/20/2020 CHIEF COMPLAINT: Low back pain, left lower extremity pain with paresthesias. HISTORY OF PRESENT ILLNESS: As you know, the patient is an 80-year-old male who returns today in followup visit with continued left hip pain. He also has been experiencing low back pain and left lower extremity pain that has been intermittent in nature. He returns today in followup visit stating a pain level of 4/10. He is now also complaining of right hip pain and thigh pain. He states pain is exacerbated with walking long distances, increases as the day goes by. It tends to be worse in the evening hours, consistent with an arthropathy of the joint. He has not sought evaluation in regard to this left hip and right hip pain. He underwent left intra-articular hip injection in October, which provided benefit of greater than 50%. He returns today in followup visit to discuss treatment options. He is denying new injury, trauma or any changes in his medication management since our last visit. ALLERGIES: IBUPROFEN. CURRENT MEDICATIONS: See chart. SOCIAL HISTORY: The patient denies tobacco, IV or illicit drug use. Admits to 3 alcoholic beverages per day. 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 IMAGING: No new imaging available. PQRS: The patient has known arthritic changes of lumbar spine, bilateral hips and bilateral knees. No rheumatoid arthritis. He is placing pain intensity today at around 4/10. He is not a fall risk, has not had a fall in the last 3 months. He is not on blood thinners, but he is treated for hypertension. He is not on chronic opioids, has a low opioid addiction potential based on assessment tool. Pain impact is 47/70, severe interference with daily activities secondary to pain. PHYSICAL EXAM: VITAL SIGNS: Blood pressure 135/72, pulse 55, respiratory rate 16 and unlabored. The patient 98% on room air. Height 5 feet 6 inches tall, weight 198 pounds, BMI calculated 32.0. [facility] [place] [address] [place] [address] PAIN MANAGEMENT CONSULTATION Name: JAVIER CALLEJAS Room #: REG [facility]#: [id number] Admission: 11/20/20 Attend Phys: Jose Edward DO Discharge: Date of : 40 Report #: [id number] GENERAL: Well-developed, well-nourished, well-hydrated 80-year-old male. He appears stated age. Pain is rated today at 4/10, mainly involving the left hip. He is able to localize that to the hip directly. HEENT: Normocephalic, atraumatic. Pupils equal, round and responsive. He is wearing a mask in compliance with COVID-19 regulations. EXTREMITIES: Show no clubbing, no cyanosis and no edema. MUSCULOSKELETAL: Lower extremity strength is symmetrical, 5/5. Muscle bulk and tone is equal and symmetrical. Seated straight leg raising negative. Supine straight leg raising remains positive on the left, but there is also positive Fabere's test on the left with pain generated with both maneuvers. Weightbearing causes intensification of left hip pain. ASSESSMENT: 1. Left hip pain. 2. Left hip osteoarthritis. 3. Symptomatic lumbar radiculopathy. 4. Severe central canal stenosis of lumbar spine. 5. Severe neural foraminal stenosis of lumbar spine. 6. Lumbosacral spondylosis with radiculopathy. 7. Displacement of lumbar intervertebral disk with radiculopathy. 8. Facet arthropathy of lumbar spine. 9. Degeneration of lumbar spine. 10. Chronic intractable pain. PLAN: 1. The patient has returned today in followup visit requesting to discuss treatment options. The patient underwent an intra-articular hip injection at our visit of 11/06/2020 with improvement in symptoms, addressing his left hip pain. He reports about 80% improvement in overall pain lasting for up to 4 days, consistent with an intrinsic hip pathology. We recommend that the patient look into surgical options in regard to this left hip given the lack of long-term efficacy with the injection. The fact that the injection provided benefit immediately and lasted for about 4 days would indicate that the hip is the source of the pain he is currently experiencing and not the lumbar spine. The injection was done into the hip and thus, we would not see systemic uptake in that medication for at least 72 hours and he had 80% improvement in overall pain right after the injection lasting for 4 days and then loss of effect, which would be more consistent with the hip itself. The patient will be following up with Orthopedics in regard to this issue. 2. In regard to the patient's ongoing intermittent low back and left lower extremity pain with radiation to the foot, this is likely due to the central canal stenosis and neural foraminal stenosis noted on imaging of the lumbar spine. We discussed with the patient that options could be entertained to address this issue if it becomes more problematic. I recommend the patient look into treatment for his hip before looking towards addressing his intermittent back and lower extremity pain. The patient is agreeable with that plan though I [facility] [place] [address] [place] [address] PAIN MANAGEMENT CONSULTATION Name: JAVIER CALLEJAS April Room #: REG [facility].#: [id number] Admission: 11/20/20 Attend Phys: Jose Edward DO Discharge: Date of : 40 Report #: [id number] will be available if he wants to trial an epidural injection. 3. The patient was provided prescription of nabumetone 500 mg dose. He will take 1 tab p.o. b.i.d. He was given #60 tablets and 2 refills, 3 months worth of medication. The patient was advised to watch for side effects with the medication including dyspepsia, worsening of blood pressure, and lower extremity edema. If he notes these side effects, discontinue immediately. 4. We will see the patient back in followup visit on an as-needed basis. He will keep us apprised of the reports through Orthopedics in regard to total hip arthroplasty. By: [id number] Jose Edward DO /nt
[2020-11-20 10:23] VITALS: BP 135/72
--- NOTE | 2020-11-20 10:34 | NUR ---
Pain Clinic Assessment: 1. History of Osteoarthritis: Left Lower Extremity Right Lower Extremity History of Rheumatoid Arthritis: Not Applicable 2. Height: 5 ft. 6 in. 167.6 cm. Weight: 198.0 lb. oz. 89.812 kg. Patient's BMI: 32.0 3. Vital Signs: BP: 135/72 Pulse: 55 Resp: 16 Temp: 02 Sat: 98 ECG Mon: 4. Pain Intensity: 4 5. Fall Risk: Dizziness: N Needs help standing or walking: N Fallen in the last 3 months: N Fall risk comments: 6. Patient on Blood Thinner: None 7. History of Hypertension: Y 8. Opioid Therapy greater than 6 weeks: N Opiate Contract Signed: 9. Risk Assessment Tool Provided: LOW-0 10. Functional Assessment Tool: / 11. Recreational Drug Use: Never Drug Type: Tobacco Use: Never Smoker Tobacco Type: Amount or Packs/day: How Many Years: Alcohol Use: Yes Frequency: Weekly Quant: 2
== END ==
LOC: PAIN 06:53
PROVIDERS: ATTEND Anesthesiology Pain Medicine
DX: M47.27 Other spondylosis with radiculopathy, lumbosacral region (principal); M51.16 Intervertebral disc disorders with radiculopathy, lumbar region; G89.4 Chronic pain syndrome; Z79.891 Long term (current) use of opiate analgesic; Z79.899 Other long term (current) drug therapy